=== PATIENT | male | born 1995 | race Caucasian/White ===

== ENCOUNTER 2020-06-14 02:49 | Emergency (ER) | payer SELFPAY ==
[~2020-06-14] VITALS: Ht 170.2 cm; Wt 68.0 kg
[2020-06-14 02:51] VITALS: BP 136/81
--- NOTE | 2020-06-14 02:51 | NUR ---
to bed ambulatory
--- NOTE | 2020-06-14 03:20 | NUR ---
25 YR OLD MALE PRESENTED TO THE ER WITH CC OF PENILE PAIN. PT IS AOX4. PT STATES 8/10 SHARP NON-RADIATING PENILE PAIN WITH SUDDEN ONSET OCCURING AFTER SEXUAL INTERCOURSE AT 1AM. PT STATES AFTER SEXUAL INTERCOURSE, THE FRENULUM REGION WAS BLEEDING. PT PENILE BLEEDING IS CONTROLLED. PT STATES NO PAIN DURING URINATION AND NO REDNESS AND NO DISCOLORATION DURING URINATION. PT DENIES OTHER MEDICAL COMPLAINTS. BED LOCKED IN LOWEST POSITION. HISTORY- NONE ALLERGIES- NONE
--- NOTE | 2020-06-14 03:20 | NUR ---
ERMD AT BEDSIDE FOR MEDICAL EVALUATION.
[2020-06-14 03:30] VITALS: BP 136/81
== END 2020-06-14 03:30 | disposition home or self-care (01) ==
LOC: MED 02:49
DX: S31.21XA Laceration without foreign body of penis, initial encounter (principal); X58.XXXA Exposure to other specified factors, initial encounter; Y93.89 Activity, other specified; Y92.89 Other specified places as the place of occurrence of the external cause; Y99.8 Other external cause status
CPT/HCPCS: 99282